=== PATIENT | male | born 1980 | race Two or more races ===

== ENCOUNTER 2022-02-19 20:38 | Emergency (ER) | payer OTHER ==
[~2022-02-19] VITALS: Ht 177.8 cm; Wt 84.4 kg
== END 2022-02-19 21:45 | disposition home or self-care (01) ==
LOC: ER 20:38
DX: S64.491A Injury of digital nerve of left index finger, initial encounter (principal); W25.XXXA Contact with sharp glass, initial encounter; Y93.9 Activity, unspecified; Y92.9 Unspecified place or not applicable; Y99.9 Unspecified external cause status

== ENCOUNTER 2022-02-26 16:18 | Emergency (ER) | payer OTHER ==
[~2022-02-26] VITALS: Ht 177.8 cm; Wt 82.1 kg
== END 2022-02-26 16:48 | disposition home or self-care (01) ==
LOC: ER 16:18
DX: Z48.02 Encounter for removal of sutures (principal)

== ENCOUNTER 2022-11-08 21:32 | Emergency (ER) | payer OTHER ==
[~2022-11-08] VITALS: Ht 177.8 cm; Wt 83.9 kg
== END 2022-11-09 01:54 | disposition home or self-care (01) ==
LOC: ER 21:32
DX: T16.2XXA Foreign body in left ear, initial encounter (principal)